=== PATIENT | female | born 1985 | race Caucasian/White ===

== ENCOUNTER 2023-09-09 16:53 | Emergency (ER) | payer OTHER ==
[~2023-09-09] VITALS: Ht 165.1 cm; Wt 59.0 kg
[2023-09-09] MEDS ORDERED: NEOMY/BACITRA/POLYMYXIN B OINT UD PACKET TP ONE ×3 (17:10→17:15)
[2023-09-09] MEDS ORDERED: HYDROCODONE/APAP 10-325 MG TABLET PO ONE (17:15)
[2023-09-09] MEDS ORDERED: HYDROCODONE/APAP 10-325 MG TABLET ONE (17:19)
[2023-09-09] MEDS ORDERED: ONDANSETRON 4 MG/2 ML VIAL IV ONE (17:30)
[2023-09-09] MEDS ORDERED: PANTOPRAZOLE SODIUM IV 80 MG in IV DEXTROSE 5% 100 ML IV ONE (17:30)
[2023-09-09] MEDS ORDERED: IV NORMAL SALINE 1000 ML BAG IV ONE (17:30)
[2023-09-09] MEDS ORDERED: HYDR-3976 PO (17:46)
[2023-09-09 18:01] VITALS: BP 118/68; TEMP 98.2; O2SAT 98
== END 2023-09-09 18:02 | disposition home or self-care (01) ==
LOC: ER 17:00
DX: S52.602A Unspecified fracture of lower end of left ulna, initial encounter for closed fracture (principal); Z79.899 Other long term (current) drug therapy; Z88.8 Allergy status to other drugs, medicaments and biological substances; W18.39XA Other fall on same level, initial encounter; Y93.89 Activity, other specified; Y92.89 Other specified places as the place of occurrence of the external cause; Y99.8 Other external cause status
CPT/HCPCS: 73110; A4606; A4663; C9113